=== PATIENT | female | born 1950 | race Caucasian/White ===

== ENCOUNTER → 2018-01-30 | Outpatient (CLI) | payer MEDICARE ==
[~2018-01-30] MED LIST: DOXY-181 PO; FLUC200T52 PO; FLUT1AER INH; GUAI118L69; HYDR-2966 PO; LISI20TA29 PO; OMEP40CA48 PO; PRED-416 PO; SERT-184 PO; SULF-198 PO
== END ==
LOC: LAB 09:47
PROVIDERS: ATTEND Registered Nurse
DX: E78.5 Hyperlipidemia, unspecified (principal); E78.2 Mixed hyperlipidemia
CPT/HCPCS: 36415; 82465; 83718; 84478